=== PATIENT | female | born 1965 | race Caucasian/White ===

== ENCOUNTER 2022-03-24 07:30 | Inpatient (IN) | payer OTHER ==
[2022-03-19 13:42] LABS: BASOPHILS % (AUTO) 0.5 % (0.0-2.0); EOSINOPHILS # (AUTO) 0.2 K/uL (0.0-0.4); EOSINOPHILS % (AUTO) 3.6 % (0.0-4.0); HEMATOCRIT 39.4 % (36-48); HEMOGLOBIN 13.6 g/dL (12.0-16.0); LYMPHOCYTES # (AUTO) 1.8 K/uL (1.0-5.5); LYMPHOCYTES % (AUTO) 26.6 % (20.5-51.5); MEAN CORPUSCULAR HEMOGLOBIN 32 pg (27-31); MEAN CORPUSCULAR HGB CONC 35 % (32-36); MEAN CORPUSCULAR VOLUME 92 fL (79.0-98.0); MONOCYTES # (AUTO) 0.3 K/uL (0.0-1.0); MONOCYTES % (AUTO) 5.1 % (1.7-9.3); NEUTROPHILS # (AUTO) 4.4 K/uL (1.8-7.7); NEUTROPHILS % (AUTO) 64.2 % (40.0-70.0); PLATELET COUNT (AUTO) 250 K/uL (130-430); RED BLOOD CELL COUNT(AUTO) 4.26 MIL/uL (4.2-6.2); RED CELL DISTRIBUTION WIDTH 12.9 % (9.0-15.0); WHITE BLOOD COUNT (AUTO) 6.8 K/uL (4.8-10.8)
[2022-03-19 13:47] LABS: BILIRUBIN,URINE NEGATIVE (NEGATIVE); BLOOD, URINE 3+ (NEGATIVE); CLARITY/URINE CLEAR (CLEAR); COLOR,URINE YELLOW (YELLOW); GLUCOSE,URINE NEGATIVE (NEGATIVE); KETONES,URINE NEGATIVE (NEGATIVE); LEUKOCYTE ESTERASE ,URINE 2+ (NEGATIVE); NITRITE, URINE NEGATIVE (NEGATIVE); PH,URINE 6.5 (5.0-8.0); PROTEIN URINE NEGATIVE (NEGATIVE); UROBILINOGEN,URINE 0.2 (0.2-1.0)
[2022-03-19 14:01] LABS: PROTHROMBIN TIME 10.2 SECS (9.5-12.5)
[2022-03-19 14:06] LABS: BACTERIA,URINE FEW /HPF (None Seen); MUCUS,URINE 1+ /LPF (None Seen)
[2022-03-19 14:23] LABS: CALCIUM 9.1 mg/dL (8.4-11.0); CREATININE 0.77 mg/dL (0.55-1.30); POTASSIUM 4.1 mmol/L (3.5-5.1)
[~2022-03-24] VITALS: Ht 157.5 cm; Wt 64.4 kg
[2022-03-31 06:36] LABS: BILIRUBIN,URINE NEGATIVE (NEGATIVE); BLOOD, URINE 3+ (NEGATIVE); CLARITY/URINE SL CLOUDY (CLEAR); COLOR,URINE YELLOW (YELLOW); GLUCOSE,URINE NEGATIVE (NEGATIVE); KETONES,URINE NEGATIVE (NEGATIVE); LEUKOCYTE ESTERASE ,URINE TRACE (NEGATIVE); NITRITE, URINE NEGATIVE (NEGATIVE); PROTEIN URINE NEGATIVE (NEGATIVE); UROBILINOGEN,URINE 0.2 (0.2-1.0)
[2022-03-31] MEDS ORDERED: CEFAZOLIN SOD 2 GM in D5W 50 ML IV ONE (06:45)
[2022-03-31] MEDS ORDERED: ROCURONIUM BROMIDE 10 MG/ML (ZEMURON) IV ONE (07:30)
[2022-03-31] MEDS ORDERED: TRANEXAMIC ACID 1,000 MG/10 ML VIAL IV ONE (07:30)
[2022-03-31] MEDS ORDERED: DEXAMETHASONE SOD PHOSPHATE 4 MG/ML VIAL IVP ONE (07:30)
[2022-03-31] MEDS ORDERED: NS 1000 ML IV.SOLN IV ONE (07:30)
[2022-03-31] MEDS ORDERED: BUPIVACAINE /DEX PF 0.75% SPINAL 2 ML AMP INJ ONE (07:30)
[2022-03-31] MEDS ORDERED: LIDOCAINE 1% 10 MG/ML, 20 ML MDV INJ ONE (07:30)
[2022-03-31] MEDS ORDERED: SUGAMMADEX SODIUM 200 MG/2 ML VIAL IV ONE (07:30)
[2022-03-31] MEDS ORDERED: MORPHINE SULFATE 10MG/10ML PF AMP EP ONE (07:30)
[2022-03-31] MEDS ORDERED: PROPOFOL 200MG/ 20ML VIAL (DIPRIVAN) IV ONE (07:30)
[2022-03-31] MEDS ORDERED: LR 1,000 ML IV.SOLN IV ONE (07:30)
[2022-03-31] MEDS ORDERED: ONDANSETRON HCL 4 MG/2 ML VIAL IVP ONE (07:30)
[2022-03-31] MEDS ORDERED: MIDAZOLAM HCL 5 MG/5 ML VIAL IVP ONE (07:30)
[2022-03-31] MEDS ORDERED: DESFLURANE 15 MIN GAS INH ONE (07:30)
[2022-03-31] MEDS ORDERED: KETOROLAC TROMETHAMINE 30 MG VIAL IVP ONE (07:30)
[2022-03-31] MEDS ORDERED: NS IRRIG SOLN 1000 ML IR ONE (07:30)
[2022-03-31] MEDS ORDERED: ACETAMINOPHEN I.V. 1000 MG 100 ML IV ONE (08:32)
[2022-03-31] MEDS ORDERED: LR 1,000 ML IV SCH (08:45)
[2022-03-31] MEDS ORDERED: METOCLOPRAMIDE HCL 10 MG/2 ML VIAL IVP PRN ×2 (08:45→11:45)
[2022-03-31] MEDS ORDERED: MIDAZOLAM HCL 2 MG/2 ML VIAL (VERSED) IVP PRN (08:45)
[2022-03-31] MEDS ORDERED: HYDROmorphone 1 MG/ML INJ. CARTRIDGE IVP PRN ×5 (08:45→11:00)
[2022-03-31] MEDS ORDERED: MEPERIDINE HCL/PF 25 MG/ML DISP.SYRIN IVP PRN (08:45)
[2022-03-31] MEDS ORDERED: ONDANSETRON HCL 4 MG/2 ML VIAL IVP PRN ×2 (08:45→11:45)
[2022-03-31] MEDS ORDERED: DIPHENHYDRAMINE INJ 50 MG/ML VIAL IVP PRN (08:45)
[2022-03-31] MEDS ORDERED: NALOXONE HCL 0.4 MG/ML AMP (NARCAN) IVP PRN ×4 (08:45→11:45)
[2022-03-31 09:35] LABS: BACTERIA,URINE FEW /HPF (None Seen); WBC,URINE 0-3 /HPF (0-3)
[2022-03-31] MEDS ORDERED: traMADol HCL HCL 50 MG TABLET (ULTRAM) PO PRN (11:00)
[2022-03-31] MEDS ORDERED: oxyCODONE HCL 5 MG TABLET PO PRN (11:00)
[2022-03-31] MEDS ORDERED: LACTULOSE 20 GM/30 ML UDC PO PRN (11:45)
[2022-03-31] MEDS ORDERED: BISACODYL 10 MG/SUPPOSITORY RC PRN (11:45)
[2022-03-31] MEDS ORDERED: DIPHENHYDRAMINE HCL 25 MG CAPSULE PO PRN (11:45)
[2022-03-31] MEDS ORDERED: ONDANSETRON HCL 4 MG/2 ML VIAL ONE (11:49)
[2022-03-31 12:35] VITALS: BP_SYST 112
[2022-03-31] MEDS: ACETAMINOPHEN 500 MG TABLET PO SCH ×2 (14:35→21:12)
[2022-03-31] MEDS: KETOROLAC TROMETHAMINE 10 MG TABLET (TORADOL) PO SCH ×2 (14:35→21:12)
[2022-03-31] MEDS: ceFAZolin SODIUM 2 GM in D5W 50 ML IV SCH ×2 (15:18→21:12)
[2022-03-31 17:30] VITALS: BP_SYST 112
[2022-03-31 21:00] VITALS: BP_SYST 107
[2022-03-31] MEDS: SENNOSIDES/DOCUSATE SODIUM 1 TAB TABLET(SENOKOT-S) PO SCH (21:00)
[2022-04-01] VITALS (8 sets, daily range): BP systolic 89–129
[2022-04-01] MEDS ORDERED: KETOROLAC TROMETHAMINE 15 MG VIAL ONE (05:16)
[2022-04-01] MEDS: ACETAMINOPHEN 500 MG TABLET PO SCH ×3 (05:20→21:24)
[2022-04-01] MEDS: oxyCODONE HCL 5 MG TABLET PO PRN ×2 (05:20→11:14)
[2022-04-01] MEDS: KETOROLAC TROMETHAMINE 10 MG TABLET (TORADOL) PO SCH (05:21)
[2022-04-01] MEDS: ceFAZolin SODIUM 2 GM in D5W 50 ML IV SCH (05:21)
[2022-04-01 06:40] LABS: BASOPHILS % (AUTO) 0.2 % (0.0-2.0); EOSINOPHILS % (AUTO) 0.1 % (0.0-4.0); HEMATOCRIT 30.9 % (36-48); HEMOGLOBIN 10.7 g/dL (12.0-16.0); LYMPHOCYTES # (AUTO) 1.2 K/uL (1.0-5.5); LYMPHOCYTES % (AUTO) 9.4 % (20.5-51.5); MEAN CORPUSCULAR HEMOGLOBIN 32 pg (27-31); MEAN CORPUSCULAR HGB CONC 35 % (32-36); MEAN CORPUSCULAR VOLUME 92 fL (79.0-98.0); MONOCYTES # (AUTO) 0.8 K/uL (0.0-1.0); MONOCYTES % (AUTO) 6.3 % (1.7-9.3); NEUTROPHILS # (AUTO) 10.5 K/uL (1.8-7.7); PLATELET COUNT (AUTO) 199 K/uL (130-430); RED BLOOD CELL COUNT(AUTO) 3.35 MIL/uL (4.2-6.2); RED CELL DISTRIBUTION WIDTH 12.8 % (9.0-15.0); WHITE BLOOD COUNT (AUTO) 12.5 K/uL (4.8-10.8)
[2022-04-01 07:03] LABS: CALCIUM 7.9 mg/dL (8.4-11.0); CREATININE 0.86 mg/dL (0.55-1.30); POTASSIUM 3.6 mmol/L (3.5-5.1)
[2022-04-01] MEDS: ASPIRIN 81 MG TAB.CHEW PO SCH ×2 (08:45→21:24)
[2022-04-01] MEDS: DECADRON 4 MG TABLET PO SCH (08:45)
[2022-04-01] MEDS: SENNOSIDES/DOCUSATE SODIUM 1 TAB TABLET(SENOKOT-S) PO SCH ×2 (08:45→21:00)
[2022-04-01] MEDS: CELECOXIB 200 MG CAPSULE PO SCH ×2 (12:43→23:00)
[2022-04-01] MEDS: ceFAZolin SODIUM 2 GM in D5W 100 ML IV SCH ×2 (14:36→21:24)
[2022-04-02 00:51] VITALS: BP_SYST 104
[2022-04-02] MEDS: ceFAZolin SODIUM 2 GM in D5W 100 ML IV SCH (05:56)
[2022-04-02] MEDS: ACETAMINOPHEN 500 MG TABLET PO SCH (06:03)
[2022-04-02] MEDS: oxyCODONE HCL 5 MG TABLET PO PRN (06:04)
[2022-04-02 06:10] VITALS: BP_SYST 114
[2022-04-02] MEDS ORDERED: ACET-2634 PO (07:24)
[2022-04-02] MEDS ORDERED: OXYIR5 PO (07:24)
[2022-04-02] MEDS: ASPIRIN 81 MG TAB.CHEW PO SCH (09:22)
[2022-04-02] MEDS: SENNOSIDES/DOCUSATE SODIUM 1 TAB TABLET(SENOKOT-S) PO SCH (09:22)
[2022-04-02] MEDS: DECADRON 4 MG TABLET PO SCH (09:22)
[2022-04-02] MEDS: CELECOXIB 200 MG CAPSULE PO SCH (11:22)
[2022-04-02 11:36] VITALS: BP_SYST 101
[2022-04-02 15:54] VITALS: BP_SYST 120
[2022-04-02] MEDS ORDERED: ASPI-1393 PO (16:14)
[2022-04-02 16:45] VITALS: BP_SYST 120
== END 2022-04-02 16:42 | disposition home health service (06) | DRG 470 ==
LOC: SMU 03-31 06:00
PROVIDERS: ADMIT Student in an Organized Health Care Education/Training Program; ATTEND Student in an Organized Health Care Education/Training Program
PROC: 0SR90JA Replacement of Right Hip Joint with Synthetic Substitute, Uncemented, Open Approach (ICD-10-PCS; principal; 2022-03-31 07:38)
DX: M16.11 Unilateral primary osteoarthritis, right hip (principal); Z20.822 Contact with and (suspected) exposure to COVID-19
CPT/HCPCS: 36415; 71046-TC; 73501; 80048; 81000; 85025; 85610-TC; 85730-TC; 87081; 88304; 88311; 96379; 97110-GP; 97116-GP; 97530-GP; J0131; J0690; J1100; J1885; J2001; J2250; J2274; J2405; J2704; J2765; J3490; J7030; J7060; J7120; J8540; U0003